=== PATIENT | female | born 1975 ===

== ENCOUNTER 2016-11-16 07:06 | Day surgery (SDC) | payer BC ==
[~2016-11-16] VITALS: Ht 160 cm; Wt 99.4 kg
[~2016-11-16 07:06] MED LIST: 00186-0372-20 IH; CLARITIN 1010 MG/TAB PO; DULERA1 AR1 IH; ESTRACE 1MG1 MG/TAB PO; FLONASE NASAL S16 GM NS; FLOVENT DI50 MCG/Act IH; LEVAQUIN 5500 MG/TA1 PO; NEXIUM 20MG20 MG PO; PERFOROMIS20 MCG/2 M IH; PREDNISONE10 MG PO; PREMARIN 0.9MG0.9 MG PO; PRILOSEC 20MG20 MG PO; PULMICORT0.5 MG/2 M IH; SINGULAIR 110 MG/TAB PO; SPORANOX100 MG PO; TOPAMAX50 MG PO; TUDORZA IH; VENTOLIN0.09 MG IH; ZANTAC 300300 MG PO; ZITHROMAX500 M2 PO; ZYRTEC 10MG10 MG PO
[2016-11-16 07:47] VITALS: BP 153/89; PULSE 59; TEMP 98
[2016-11-16] MEDS ORDERED: ZYRTEC 10MG10 MG PO (07:57)
[2016-11-16] MEDS ORDERED: 00186-0370-20 IH (08:00)
[2016-11-16] MEDS ORDERED: OMNICEF 300MG300 MG PO (08:01)
[2016-11-16 09:32] VITALS: BP 131/76; PULSE 80; TEMP 98.4
[2016-11-16 09:50] VITALS: BP 117/71; PULSE 69
== END 2016-11-16 10:30 | disposition home or self-care (01) ==
LOC: SDCO 07:06
DX: J40 Bronchitis, not specified as acute or chronic (principal); R91.1 Solitary pulmonary nodule; J04.10 Acute tracheitis without obstruction; R05 Cough; R06.02 Shortness of breath; K21.9 Gastro-esophageal reflux disease without esophagitis; J45.40 Moderate persistent asthma, uncomplicated; Z79.899 Other long term (current) drug therapy
CPT/HCPCS: J2704; J7030

== ENCOUNTER → 2017-01-20 | Outpatient (CLI) | payer BC ==
[~2017-01-20] MED LIST changes: +00186-0370-20 IH; +OMNICEF 300MG300 MG PO
== END ==
LOC: MHCPAIN 07:55
DX: G89.29 Other chronic pain (principal); R10.31 Right lower quadrant pain; M79.2 Neuralgia and neuritis, unspecified
CPT/HCPCS: G0463

== ENCOUNTER → 2017-01-25 | Outpatient (CLI) | payer BC | LOC: MHCPAIN 12:38 | DX: G57.91 Unspecified mononeuropathy of right lower limb (principal) | CPT/HCPCS: J1100 ==

== ENCOUNTER → 2017-02-08 | Outpatient (CLI) | payer BC | LOC: MHCPAIN 08:34 | DX: G89.29 Other chronic pain (principal); G58.8 Other specified mononeuropathies | CPT/HCPCS: G0463 ==

== ENCOUNTER → 2017-05-09 | Outpatient (CLI) | payer BC | LOC: MHCPAIN 09:53 | DX: M79.2 Neuralgia and neuritis, unspecified (principal); M79.1 Myalgia | CPT/HCPCS: G0463 ==

== ENCOUNTER → 2017-05-12 | Outpatient (CLI) | payer BC | LOC: MHCPAIN 07:49 | DX: G57.81 Other specified mononeuropathies of right lower limb (principal) | CPT/HCPCS: J1100 ==

== ENCOUNTER 2020-09-29 06:49 | Outpatient (CLI) | payer BC ==
[~2020-09-29] VITALS: Ht 160 cm; Wt 96.2 kg
[2020-09-29] VITALS (16 sets, daily range): BP systolic 124–158; BP diastolic 77–105; PULSE 71–87
[~2020-09-29 06:49] MED LIST changes: +GLUCOPHAGE1000 MG PO
[2020-09-29] MEDS ORDERED: PHARMASSURE CHE30 MG (07:12)
[2020-09-29] MEDS ORDERED: ONE-A-DAY ESSE1 EACH PO (07:12)
[2020-09-29] MEDS ORDERED: VTAMINC250TA (07:13)
--- NOTE | 2020-09-29 08:15 | NUR ---
pt to ct per ambulation. Pt positioned in prone position on ct table monitors applied and O2 on at 2l/nc.
--- NOTE | 2020-09-29 08:28 | NUR ---
Specimen obtained and placed in formalin by Dr Mack. Specimen labeled.
--- NOTE | 2020-09-29 08:48 | NUR ---
Pt arrived to [facility] 10 via cart.report from Amy Liz.pt c/o pain rated at a 6 on 0-10 scale on right side.Reported to Radiologist by Amy Liz.Chest xray completed.Will continue to monitor.
--- NOTE | 2020-09-29 09:30 | NUR ---
Pt reports pain is "better." Per pt report she thinks pain is from gas and takes gas relief drops frequently.
--- NOTE | 2020-09-29 11:14 | NUR ---
Discharge instructions given to pt.Pt verbalizes understanding.INT removed,catheter tip intact.
--- NOTE | 2020-09-29 11:25 | NUR ---
Pt escorted out via wheelchair by Amy Bosch.
== END 2020-09-29 12:34 | disposition home or self-care (01) ==
LOC: COL.RAD 06:49
DX: R91.1 Solitary pulmonary nodule (principal)